=== PATIENT | female | born 1990 | race Hispanic/Latino ===

== ENCOUNTER → 2018-05-21 11:17 | Outpatient (CLI) | payer OTHER, SELFPAY ==
[2018-05-21 11:06] VITALS: BMI 33.7
--- NOTE | 2018-05-21 11:23 | RAD_ITS ---
STUDY: X-RAY - LEFT ANKLE REASON FOR EXAM: Female, 28 years old. Pain. Swelling. TECHNIQUE: 3 view(s) of the ankle. COMPARISON: None. FINDINGS: Normal visualized distal tibia and fibula. Normal medial and lateral malleoli. Normal tibiotalar articulation and ankle mortise. Normal visualized talus and calcaneus. Talar neck peak. The visualized subtalar, talonavicular, calcaneocuboid and tarsal articulations are normal. Soft tissue swelling. RAD/Ankle min 3 Views IMPRESSION: Soft tissue swelling. Electronically Signed: Heber David, at 12:14 EDT , Service support ,
== END ==
PROVIDERS: Family Provider Internal Medicine; PCP Internal Medicine; Referring Provider Physician Assistant Surgical; Visit Provider Physician Assistant Surgical
DX: S93.402A Sprain of unspecified ligament of left ankle, initial encounter (principal)
CPT/HCPCS: 73610

== ENCOUNTER 2018-08-04 12:50 | Emergency (ER) | payer OTHER, SELFPAY ==
[2018-05-21 11:06] VITALS: BMI 33.7
[2018-08-04 12:51] VITALS: BP 140/85; PULSE 60; RESP 16; TEMP 36.2; O2SAT 96; BMI 34.4
[2018-08-04] MEDS: 0.9% Normal Saline 1,000 ML 1000 ML IV (13:34)
[2018-08-04] MEDS: Metoclopramide 10 MG/2 ML Vial IV (13:34)
[2018-08-04] MEDS: Ketorolac 30 MG/ML Syringe IV (13:34)
[2018-08-04] MEDS: DiphenhydrAMINE 50 MG/ML Syringe IV (13:34)
[2018-08-04 13:36] LABS: Absolute Lymphocyte Count 1.84 X10^3/ul (0.83-4.51); Absolute Neutrophil Count 4.2 X10^3/uL (2.0-7.7); Basophil# 0.03 X10^3/uL; Basophil% 0.4 % (0-1); Eosinophil# 0.24 X10^3/uL; Eosinophils% 3.4 % (0-5); Hematocrit 38.4 % (37-47); Hemoglobin 12.8 g/dl (12.0-15.0); Lymphocyte # 1.84 X10^3/ul (4.0); Lymphocyte % 25.7 % (19-41); Mean Corp Hgb Conc 33.3 g/gl (32-36); Mean Corpuscular Hgb 30.9 pg (27.0-32.0); Mean Corpuscular Volume 92.8 fL (81-99); Mean Platelet Vol. 9.3 fl (6.2-12.0); Monocyte# 0.84 X10^3/uL; Monocyte% 11.7 % (0-10); Neutrophil # 4.19 X10^3/uL (2.7-7.7); Neutrophil % 58.7 % (47-70); POSITIVE COUNT NO; POSITIVE DIFFERENTIAL NO; POSITIVE MORPHOLOGY NO; Platelet Count 226 K/mm3 (150-450); RBC Distribution Width CV 12.4 % (11.6-14.6); RBC Distribution Width SD 41.8 fl (35.1-43.9); Red Blood Count 4.14 M/mm3 (4.2-5.4); White Blood Count 7.2 K/mm3 (4.4-11.0)
[2018-08-04 13:49] LABS: Anion Gap 6 (5-15); BUN 15 mg/dL (7-18); BUN/Creat Ratio 22.3 RATIO (10-20); Calcium,Total 8.7 mg/dL (8.5-10.1); Chloride 107 mmol/L (98-107); Creatinine, Serum 0.67 mg/dL (0.55-1.02); EST Glomerular Filtration Rate 109 mL/min (>60); Est Glom Filt Rate - Afr Amer 132 mL/min (>60); Estimated Creatinine Clearance 119.39 ml/min; Glucose 80 mg/dL (74-106); Potassium 4.3 mmol/L (3.5-5.1); Sodium Level 143 mmol/L (136-145)
[2018-08-04 13:57] LABS: Internal QC Validated? YES +Cl - CLEAR BKGD; Pregnancy, Serum, hCG Quali. NEGATIVE Negative
--- NOTE | 2018-08-04 14:47 | ED.DCSUM_ITS ---
- ER Visit Summary Date of Service: 08/04/18 Chief Complaint: Headache History of Present Illness: The patient is a [address] Clayton. She reports that she has a headache that began 3 days ago. It does come on gradually.'s continuous waxing, waning pain. She describes as a burning pain over her forehead. Is 7 out of 10 at worst and 5-10 currently. Is worsened by rest. Is relieved by Excedrin and ibuprofen. She does have photophobia and nausea. She denies any vomiting. No change in her vision. No recent trauma. No fever. Physical Examination: Vitals: Stable. Afebrile. General: Well-nourished and well-developed. Head: Normocephalic atraumatic. Neck: Supple, no lymphadenopathy. No JVD. Nontender. Cardiovascular: Regular rate and rhythm. No murmurs. Respiratory: No respiratory distress. Clear to auscultation bilaterally. Abdominal: Soft, nontender, nondistended, normal bowel sounds. No guarding, rebound, or peritoneal signs. Back: Nontender. Extremities: Nontender, no edema. Skin: Normal color, no rash. Neurologic: Alert and oriented ?3. Cranial nerves II through XII are intact. Normal strength and sensation. Psych: Normal affect. Test Results: CBC shows monocytes of 12. Chem-7 is normal. test is negative. Patient refused a CT of the head. I feel that this is a reasonable course of action. Emergency Department Course and Treatment: Patient was treated with Toradol, Benadryl, and Reglan IV. She had significant relief and is resting comfortably. Treatment Plan: Patient will be discharged with symptomatic care. Follow-up instructed to follow-up with her primary care physician 1 to 2 days if not improving. Return to the emergency department for any worsening symptoms. Disposition: To home in improved and stable condition. Impression: 1. Cephalgia. This note was generated with [employer] dictation software. It may contain incorrect words, spelling, and punctuation that were not noted in review of the chart prior to signing ED Disposition - Plan for ED Patient: Disposition: Home or Assisted Living Instructions: ED Cephalgia Unspecified Referrals: Lissa Clayton MD [Primary Care Provider] - 1-2 Days if not improving
== END 2018-08-04 14:55 | disposition home or self-care (01) ==
PROVIDERS: Emergency Provider Emergency Medicine; Family Provider Internal Medicine; PCP Internal Medicine
DX: R51 Headache (principal); H53.149 Visual discomfort, unspecified; R11.0 Nausea; R68.83 Chills (without fever); R00.2 Palpitations
CPT/HCPCS: 80048; 84703; 85025; 96361; 96374; 96375; 99283; J7030

== ENCOUNTER → 2020-02-20 10:10 | Outpatient (CLI) | payer OTHER, SELFPAY ==
[2020-02-20 07:05] VITALS: BMI 34.4
== END ==
PROVIDERS: Referring Provider Physician Assistant Surgical; Visit Provider Physician Assistant Surgical
DX: Z20.828 Contact with and (suspected) exposure to other viral communicable diseases (principal)
CPT/HCPCS: 87635; U0003

== ENCOUNTER 2020-06-07 18:48 | Emergency (ER) | payer OTHER, SELFPAY ==
[2020-03-08 08:03] VITALS: BMI 39.6
[2020-06-07 18:49] VITALS: BP 163/78; PULSE 71; RESP 16; TEMP 36.5; O2SAT 100; BMI 38.7
--- NOTE | 2020-06-07 19:09 | CT_ITS ---
STUDY: CT BRAIN WITHOUT CONTRAST REASON FOR EXAM: Female, 30 years old. Paraesthesias.pt states that the last 4 times she has gone on an hr long walk she will develop numbness in left foot. Pt seen at pcp yesterday and had blood work done that all came back normal. Today walked again with numbness in left foot that resolved and is now in left hand RADIATION DOSAGE (If Supplied By Facility): CTDIvol = ( 44.99 ) mGy, DLP = ( 796.11 ) mGycm TECHNIQUE: Transaxial CT imaging of the brain was performed without administration of intravenous contrast material. Individualized dose optimization techniques were used for this CT. COMPARISON: 12/01/2013 FINDINGS: Normal soft tissue structures. Normal calvarium. Normal size ventricles and extra-axial spaces for the patient''s age. Normal white matter tracts of the cerebral hemispheres. Normal basal ganglia and thalami. Normal brainstem. Normal cerebellum. There is no intracranial hemorrhage. There are no findings of an acute ischemic infarction. Normal visualized paranasal sinuses. CT/Brain/Head without Contrast IMPRESSION: No acute intracranial process. Electronically Signed: Smiley Ivory MD at 20:40 EDT Tel , Service support ,
[2020-06-07 19:59] LABS: Internal QC Validated? YES +Cl - CLEAR BKGD; Pregnancy, Serum, hCG Quali. NEGATIVE Negative
[2020-06-07 20:12] LABS: Thyroid Stim Hormone (TSH) 2.66 uIU/mL (0.358-3.74)
--- NOTE | 2020-06-07 21:23 | ED.DCSUM_ITS ---
- ER Visit Summary Date of Service: 06/07/20 Chief Complaint: [Paresthesias] History of Present Illness: The patient is a 30 F [presents to the emergency department with paresthesias to her left foot that have been going on for several months. Patient states that intermittently it will feel like her left f oot falls asleep. Patient also has had some intermittent episodes where her hands feel numb and tingly as well. She has had some associated intermittent headaches and at times some shortness of breath. Patient saw her primary care physician yesterday and had some blood work that was normal. She was able to show me that she had a CBC and chemistries done yesterday that were normal. Patient does not think she is . She does have a history of anxiety but the symptoms are different than what she experiences with her anxiety. Family history known of MS but she does not know her biological father. Patient denies recent illness otherwise. Denies visual changes.] Physical Examination: [HEENT-PERRLA, EOMI. Cranial nerves II through XII grossly intact. TMs clear. Mucous membranes moist. No adenopathy. Cardiovascular-regular rate and rhythm without murmur or ectopy Lungs-clear to auscultation, chest wall stable without crepitus or subcu emphysema Abdomen-normoactive bowel sounds, soft, nontender, no rebound or rigidity, no peritoneal signs. Neuro ywjo-gdzzfl-ydab and heel webb testing within normal limits, negative Romberg, negative , Fundi benign Extremities-intact ?4, normal range of motion, normal pulses, atraumatic] Test Results: [TSH obtained was normal. hCG was negative. CT scan of the brain without contrast was normal.] Emergency Department Course and Treatment: [] Treatment Plan: [Patient advised to follow-up with her primary care physician lilli chisholm next 3 to 5 days. If her symptoms persist she may require specialty follow-up with neurology potentially. At this point etiology of her paresthesias is unclear.] Disposition: [Discharged home in stable condition] Impression: [Paresthesias-etiology uncertain] This note was generated with [employer] software. It may contain incorrect words, spelling, and punctuation that were not noted in review of the chart prior to signing ED Disposition - Plan for ED Patient: Referrals: Lissa Clayton MD [Primary Care Provider] -
--- NOTE | 2020-06-07 21:26 | ED.DEP ---
ED Disposition - Plan for ED Patient: Instructions: ED Neuropathy, Peripheral, ED Paraesthesias Referrals: Lissa Clayton MD [Primary Care Provider] - 3-5 Days
[2020-06-07 21:35] VITALS: BP 132/81; PULSE 63; RESP 17; O2SAT 100
== END 2020-06-07 21:46 | disposition home or self-care (01) ==
PROVIDERS: Emergency Provider Emergency Medicine; PCP Internal Medicine
DX: R20.2 Paresthesia of skin (principal)
CPT/HCPCS: 70450; 84443; 84703; 99283; A4216

== ENCOUNTER 2021-05-28 12:35 | Outpatient (CLI) | payer OTHER, SELFPAY ==
[2021-05-28 12:52] LABS: Absolute Lymphocyte Count 1.44 X10^3/uL (0.83-4.51); Absolute Neutrophil Count 7.2 X10^3/uL (2.0-7.7); Basophil# 0.02 X10^3/uL; Basophil% 0.2 % (0-1); Eosinophil# 0.07 X10^3/uL; Eosinophils% 0.7 % (0-5); Hematocrit 34.6 % (37-47); Hemoglobin 11.5 g/dL (12.0-15.0); Lymphocyte # 1.44 X10^3/ul (0.83-4.51); Mean Corp Hgb Conc 33.2 g/dL (32-36); Mean Corpuscular Hgb 30.7 pg (27.0-32.0); Mean Corpuscular Volume 92.3 fL (81-99); Mean Platelet Vol. 9.7 fl (6.2-12.0); Monocyte# 0.77 X10^3/uL; NRBC Flagged by Analyzer 0 % (0-5); Neutrophil # 7.23 X10^3/uL (2.7-7.7); Neutrophil % 75.2 % (47-70); Platelet Count 262 K/mm3 (150-450); RBC Distribution Width CV 12.2 % (11.6-14.6); RBC Distribution Width SD 41.1 fl (35.1-43.9); Red Blood Count 3.75 M/mm3 (4.2-5.4); White Blood Count 9.6 K/mm3 (4.4-11.0)
[2021-05-28 13:26] LABS: Glucose Challenge Gest 1H 50g 143 mg/dL (70-140)
== END 2021-05-28 23:59 | disposition home or self-care (01) ==
LOC: PAVLAB 12:36
PROVIDERS: PCP Internal Medicine; Referring Provider Obstetrics & Gynecology; Visit Provider Obstetrics & Gynecology
DX: Z34.00 Encounter for supervision of normal first pregnancy, unspecified trimester (principal)
CPT/HCPCS: 36415; 82950; 85025

== ENCOUNTER 2021-06-07 07:03 | Outpatient (CLI) | payer OTHER, SELFPAY ==
[2021-06-07 07:55] LABS: Glucose GTT-Gestation. Fasting 84 mg/dL (<105)
[2021-06-07 08:42] LABS: Glucose GTT-Gestational 1 Hr 152 mg/dL (<190)
[2021-06-07 09:44] LABS: Glucose GTT-Gestational 2 Hr 126 mg/dL (<165)
[2021-06-07 11:00] LABS: Glucose GTT-Gestational 3 Hr 81 L (<145)
== END 2021-06-07 23:59 | disposition home or self-care (01) ==
LOC: LAB 07:04
PROVIDERS: PCP Internal Medicine; Referring Provider Nurse Practitioner Women's Health; Visit Provider Nurse Practitioner Women's Health
DX: O99.810 Abnormal glucose complicating pregnancy (principal); Z3A.00 Weeks of gestation of pregnancy not specified
CPT/HCPCS: 36415; 82951; 82952

== ENCOUNTER → 2021-06-11 | Outpatient (CLI) | payer OTHER, SELFPAY | END | disposition home or self-care (01) | LOC: LABSPEC 06-12 07:29 | PROVIDERS: PCP Internal Medicine; Visit Provider Nurse Practitioner Women's Health | DX: Z34.92 Encounter for supervision of normal pregnancy, unspecified, second trimester (principal) | CPT/HCPCS: 87086; 87088 ==

== ENCOUNTER → 2021-06-24 | Outpatient (CLI) | payer OTHER, SELFPAY ==
--- NOTE | 2021-06-24 12:28 | US_ITS ---
STUDY: SECOND AND THIRD TRIMESTER OBSTETRICAL ULTRASOUND - LIMITED REASON FOR EXAM: Female, 31 years old growth @ 32 and 36 weeks PRIOR ULTRASOUND: None. TECHNIQUE: Transabdominal TECHNICAL QUALITY: Adequate. FINDINGS: There is a single intrauterine fetus. The fetus is in a cephalic presentation. There is demonstrated cardiac activity with a heart rate of 140 bpm. There is a normal amniotic fluid volume. The largest amniotic fluid pocket measures 8 cm. The amniotic fluid index (KEYONNA) is 27 cm. The placenta is fundal. There are Grade 0 placental changes. The cervix measures 3.4 cm cm in length and closed. BIOMETRY: BPD: 8.6: 8 weeks, 5 days HC: 30.734 and 1 dys : 33 weeks, and 4 days AC: 29.7: 33 weeks, 4 days FL: : 31 weeks, 4 days No obvious anomalies. Gender: Female US/OB Limited With Biometrics IMPRESSION: Live intrauterine with a gestation age of 12 weeks and 3 days. Electronically Signed: Prabhu Colorado MD at 23:46 EDT ,
== END | disposition home or self-care (01) ==
LOC: OPUS 12:27
PROVIDERS: PCP Internal Medicine; Referring Provider Nurse Practitioner Women's Health; Visit Provider Nurse Practitioner Women's Health
DX: U07.1 COVID-19 (principal)
CPT/HCPCS: 76816

== ENCOUNTER → 2021-07-02 | Outpatient (CLI) | payer OTHER, SELFPAY ==
--- NOTE | 2021-07-02 19:10 | US_ITS ---
EXAM: US , LIMITED CLINICAL INDICATION: KEYONNA- RECHECK FLUID TECHNIQUE: Real-time limited ultrasound of the maternal uterus with image documentation. This report was created using [employer] report generation technology. COMPARISON: June 24, 2021. FINDINGS: FETUS: Single live fetus, cephalic presentation. HEART RATE: heart rate 1 41 bpm. PLACENTA: Fundal placenta. No evidence of hemorrhage or abruption. AMNIOTIC FLUID: 4 quadrant KEYONNA 21.3 cm. Largest pocket 7.4 cm. Comparison: 4 quadrant KEYONNA was reported to be 27.5 with largest fluid pocket 8 cm on prior exam June 24, 2021. CERVIX: Cervix length 3.6 cm, it appears closed. ADNEXA: Nonvisualized adnexal structures. VASCULATURE: Three-vessel CORD is demonstrated. US/OB Limited (No Biometrics) IMPRESSION: Limited exam. Single live fetus, cephalic presentation. Amniotic fluid measurements above. No obvious acute complications of . Electronically Signed: Latonya Vazquez MD at 0:36 EDT ,
== END | disposition home or self-care (01) ==
LOC: OPUS 19:08
PROVIDERS: PCP Internal Medicine; Visit Provider Nurse Practitioner Women's Health
DX: Z34.90 Encounter for supervision of normal pregnancy, unspecified, unspecified trimester (principal)
CPT/HCPCS: 76815

== ENCOUNTER → 2021-07-12 | Outpatient (CLI) | payer OTHER, SELFPAY ==
--- NOTE | 2021-07-12 08:01 | US_ITS ---
STUDY: SECOND AND THIRD TRIMESTER OBSTETRICAL ULTRASOUND - LIMITED REASON FOR EXAM: Female, 31 years old KEYONNA -- POLYHYDRAMNIOS LMP: 11/09/2020. PRIOR ULTRASOUND: Comparison is made with prior study of 07/02/2021. TECHNIQUE: Transabdominal TECHNICAL QUALITY: Adequate. FINDINGS: There is a single intrauterine fetus. The fetus is in a cephalic presentation. There is demonstrated cardiac activity with a heart rate of 155 bpm. There is increased amniotic fluid volume consistent with polyhydramnios. The largest amniotic fluid pocket measures 6.5 cm. The amniotic fluid index (KEYONNA) is 22.1 cm. The placenta is posterior and fundal. Not low-lying. There are Grade 0 placental changes. BIOMETRY: Age by LMP: 35 weeks, 0 days. MICHELLE by LMP: 08/16/2021.. US/OB Limited (No Biometrics) IMPRESSION: Elevated amniotic fluid index. Electronically Signed: Heber David MD at 11:08 EDT ,
== END | disposition home or self-care (01) ==
LOC: OPUS 07:47
PROVIDERS: PCP Internal Medicine; Referring Provider Nurse Practitioner Women's Health; Visit Provider Nurse Practitioner Women's Health
DX: O40.3XX0 Polyhydramnios, third trimester, not applicable or unspecified (principal); Z3A.35 35 weeks gestation of pregnancy
CPT/HCPCS: 76815

== ENCOUNTER → 2021-07-19 | Outpatient (CLI) | payer OTHER, SELFPAY ==
--- NOTE | 2021-07-19 14:32 | US_ITS ---
STUDY: SECOND AND THIRD TRIMESTER OBSTETRICAL ULTRASOUND - LIMITED REASON FOR EXAM: Female, 31 years old. weekly KEYONNA check PRIOR ULTRASOUND: Jul 12 2021 8:05am TECHNIQUE: Transabdominal TECHNICAL QUALITY: Adequate. FINDINGS: There is a single intrauterine fetus. The fetus is in a cephalic presentation. There is demonstrated cardiac activity with a heart rate of 130 bpm. There is a normal amniotic fluid volume. The largest amniotic fluid pocket measures 4.7 cm. The amniotic fluid index (KEYONNA) is 13.6 cm. The placenta is fundal in location posterior in location and is not low lying. There are Grade 1 placental changes. The cervix measures cm in length: . Age by LMP: 36 weeks, 0 days. MICHELLE by LMP: 6.24.22. US/OB Limited (No Biometrics) IMPRESSION: There is a single live intrauterine with a heart rate of 130 bpm. Age by LMP: 36 weeks, 0 days. MICHELLE by LMP: 6.24.22. The amniotic fluid index (KEYONNA) is 13.6 cm Electronically Signed: John Lai MD at 15:38 EDT Reading Location ID and State: [facility] / [place] , Service support ,
== END | disposition home or self-care (01) ==
LOC: OPUS 14:31
PROVIDERS: PCP Internal Medicine; Visit Provider Nurse Practitioner Women's Health
DX: O40.9XX0 Polyhydramnios, unspecified trimester, not applicable or unspecified (principal); Z3A.00 Weeks of gestation of pregnancy not specified
CPT/HCPCS: 76815

== ENCOUNTER → 2021-07-23 | Outpatient (CLI) | payer OTHER, SELFPAY ==
--- NOTE | 2021-07-23 14:36 | US_ITS ---
STUDY: SECOND AND THIRD TRIMESTER OBSTETRICAL ULTRASOUND - LIMITED REASON FOR EXAM: Female, 31 years old. growth PRIOR ULTRASOUND: 5.27.22 TECHNIQUE: Transabdominal TECHNICAL QUALITY: Adequate. FINDINGS: There is a single intrauterine fetus. The fetus is in a cephalic presentation. There is demonstrated cardiac activity with a heart rate of 145 bpm. There is a normal amniotic fluid volume. The largest amniotic fluid pocket measures 7.9 cm. The amniotic fluid index (KEYONNA) is 24.7 cm. The placenta is fundal in location. There are Grade 1 placental changes. The cervix measures cm in length: 3.5. BIOMETRY: BPD: 95 mm: 38 weeks, 3 days HC: 340 mm: 39 weeks, 0 days AC: 344 mm: 38 weeks, 2 days FL: 69 mm: 35 weeks, 2 days CI: 81 FL/AC: 20 FL/BPD: 73 HC/AC: .99 age by current US: 37 weeks, 5 days. MICHELLE by current US: 6.16.22. Estimated weight: 3301 grams, +/- 495 grams, 83 %. age by prior US: 37 weeks, 3 days. MICHELLE by prior US: 6.18.22. Age by LMP: 36 weeks, 4 days. MICHELLE by LMP: 6.24.22. US/OB Limited With Biometrics IMPRESSION: There is a single live intrauterine with a heart rate of 145 bpm. age by current US: 37 weeks, 5 days. MICHELLE by current US: 6.16.22. Estimated weight: 3301 grams, +/- 495 grams, 83 %. EFW is greater than 75%. Large for gestational age (LGA) should be considered. Electronically Signed: John Lai MD at 16:55 EDT ,
== END | disposition home or self-care (01) ==
PROVIDERS: PCP Internal Medicine; Visit Provider Nurse Practitioner Women's Health
DX: Z34.02 Encounter for supervision of normal first pregnancy, second trimester (principal)
CPT/HCPCS: 76816; 87081

== ENCOUNTER → 2021-07-26 | Outpatient (CLI) | payer OTHER, SELFPAY ==
--- NOTE | 2021-07-26 13:56 | US_ITS ---
STUDY: SECOND AND THIRD TRIMESTER OBSTETRICAL ULTRASOUND - LIMITED REASON FOR EXAM: Female, 31 years old KEYONNA -- WEEKLY KEYONNA LMP: 11/09/2020. PRIOR ULTRASOUND: Comparison is made with prior study of 07/23/2021. TECHNIQUE: Transabdominal TECHNICAL QUALITY: Adequate. FINDINGS: There is a single intrauterine fetus. The fetus is in a cephalic presentation. There is demonstrated cardiac activity with a heart rate of 150 bpm. There is a normal amniotic fluid volume. The largest amniotic fluid pocket measures 7.1 cm. The amniotic fluid index (KEYONNA) is 21 cm. The placenta is posterior in location and is not low lying. There are Grade 1 placental changes. The cervix measures 3.9 cm in length. BIOMETRY: Age by LMP: 37 weeks, 0 days. MICHELLE by LMP: 08/16/2021. US/OB Limited (No Biometrics) IMPRESSION: Normal amniotic fluid index. Electronically Signed: Heber David MD at 16:15 EDT ,
== END | disposition home or self-care (01) ==
LOC: OPUS 13:53
PROVIDERS: PCP Internal Medicine; Referring Provider Nurse Practitioner Women's Health; Visit Provider Nurse Practitioner Women's Health
DX: Z34.93 Encounter for supervision of normal pregnancy, unspecified, third trimester (principal)
CPT/HCPCS: 76815

== ENCOUNTER → 2021-08-02 | Outpatient (CLI) | payer OTHER, SELFPAY ==
--- NOTE | 2021-08-02 08:05 | US_ITS ---
EXAM: US , LIMITED CLINICAL INDICATION: KEYONNA TECHNIQUE: Real-time limited ultrasound of the maternal uterus with image documentation. This report was created using [employer] report generation technology. COMPARISON: None. FINDINGS: POSITION: There is an intrauterine gestation in cephalic position. HEART RATE: heart rate is 132 bpm. AMNIOTIC FLUID: KEYONNA measures 19.1 cm. US/OB Limited (No Biometrics) IMPRESSION: Intrauterine gestation with heart rate of 132 bpm. KEYONNA measures 19.1 cm. Electronically Signed: Tulio Garcia MD at 16:38 EDT ,
== END | disposition home or self-care (01) ==
LOC: OPUS 08:01
PROVIDERS: PCP Internal Medicine; Referring Provider Nurse Practitioner Women's Health; Visit Provider Nurse Practitioner Women's Health
DX: O40.9XX0 Polyhydramnios, unspecified trimester, not applicable or unspecified (principal); Z3A.00 Weeks of gestation of pregnancy not specified
CPT/HCPCS: 76815

== ENCOUNTER → 2021-08-09 | Outpatient (CLI) | payer OTHER, SELFPAY ==
--- NOTE | 2021-08-09 17:00 | US_ITS ---
STUDY: SECOND AND THIRD TRIMESTER OBSTETRICAL ULTRASOUND - LIMITED REASON FOR EXAM: Female, 31 years old . Polyhydramnios. KEYONNA. LMP: Unknown. PRIOR ULTRASOUND: 06/24/2021 07/23/2021 TECHNIQUE: Transabdominal TECHNICAL QUALITY: Adequate. FINDINGS: There is a single intrauterine fetus. The fetus is in a cephalic presentation. There is demonstrated cardiac activity with a heart rate of 134 bpm. There is a normal amniotic fluid volume. The largest amniotic fluid pocket measures 6.69 cm. The amniotic fluid index (KEYONNA) is 22.43 cm. The placenta is posterior in location and is not low lying. There are Grade 2 placental changes. The cervix is obscured age by initial US: 40 weeks, 0 days. MICHELLE by initial US: 08/10/2021. age by most recent US: 40 weeks, 2 days. MICHELLE by most recent US: 08/08/2021. US/OB Limited (No Biometrics) IMPRESSION: 1. Live single intrauterine 40 weeks 0 days. heart rate is 134 bpm. 2. KEYONNA of 22.43 cm. 3. Posterior grade 2 placenta. 4. Vertex presentation. Electronically Signed: Ricardo Chua DO at 17:02 EDT ,
== END | disposition home or self-care (01) ==
LOC: US 17:02
PROVIDERS: PCP Internal Medicine; Visit Provider Nurse Practitioner Women's Health
DX: O40.9XX0 Polyhydramnios, unspecified trimester, not applicable or unspecified (principal); Z3A.00 Weeks of gestation of pregnancy not specified
CPT/HCPCS: 76815

== ENCOUNTER → 2021-08-16 | Outpatient (CLI) | payer OTHER, SELFPAY ==
--- NOTE | 2021-08-16 13:37 | US_ITS ---
EXAM: US , LIMITED CLINICAL INDICATION: KEYONNA TECHNIQUE: Real-time limited ultrasound of the maternal uterus with image documentation. This report was created using [employer] report generation technology. COMPARISON: None. FINDINGS: POSITION: Cephalic presentation. HEART RATE: heart rate is 140 bpm. PLACENTA: Placenta is fundal without placenta previa. AMNIOTIC FLUID: Amniotic fluid index is 18.7 cm. Deepest vertical pocket is 6.8 cm. US/OB Limited (No Biometrics) IMPRESSION: Amniotic fluid index is 18.7 cm. Electronically Signed: Chilango Back MD at 22:59 EDT ,
== END | disposition home or self-care (01) ==
LOC: OPUS 13:31
PROVIDERS: PCP Internal Medicine; Visit Provider Nurse Practitioner Women's Health
DX: O40.9XX0 Polyhydramnios, unspecified trimester, not applicable or unspecified (principal); Z3A.00 Weeks of gestation of pregnancy not specified
CPT/HCPCS: 76815

== ENCOUNTER 2021-08-22 19:19 | Inpatient (IN) | payer OTHER, SELFPAY ==
[2021-08-22 19:29] VITALS: PULSE 95; O2SAT 98
[2021-08-22 19:34] VITALS: PULSE 86; O2SAT 98
[2021-08-22 19:38] VITALS: BP 136/69; PULSE 84; TEMP 37
[2021-08-22 19:52] LABS: Absolute Lymphocyte Count 2.42 X10^3/uL (0.83-4.51); Absolute Neutrophil Count 8.6 X10^3/uL (2.0-7.7); Basophil# 0.03 X10^3/uL; Basophil% 0.2 % (0-1); Eosinophil# 0.09 X10^3/uL; Eosinophils% 0.7 % (0-5); Hematocrit 36.3 % (37-47); Hemoglobin 12.1 g/dL (12.0-15.0); Lymphocyte # 2.42 X10^3/ul (0.83-4.51); Lymphocyte % 19.6 % (19-41); Mean Corp Hgb Conc 33.3 g/dL (32-36); Mean Corpuscular Hgb 30.6 pg (27.0-32.0); Mean Corpuscular Volume 91.7 fL (81-99); Mean Platelet Vol. 11.7 fl (6.2-12.0); Monocyte# 1.18 X10^3/uL; Monocyte% 9.5 % (0-10); NRBC Flagged by Analyzer 0 % (0-5); Neutrophil # 8.56 X10^3/uL (2.7-7.7); Neutrophil % 69.3 % (47-70); Platelet Count 246 K/mm3 (150-450); RBC Distribution Width CV 13.2 % (11.6-14.6); Red Blood Count 3.96 M/mm3 (4.2-5.4); White Blood Count 12.4 K/mm3 (4.4-11.0)
[2021-08-22 20:34] VITALS: BMI 41.6
[2021-08-22] MEDS: miSOPROStol 25 MCG TABLET VAGINAL (21:01)
[2021-08-22] MEDS: Famotidine 20 MG Tablet 10 MG PO (21:10)
[2021-08-22 23:05] VITALS: BP 147/84; PULSE 83; TEMP 36.8; O2SAT 98
[2021-08-23] VITALS (28 sets, daily range): BP systolic 108–180; BP diastolic 57–98; PULSE 61–85; TEMP 36.4–37.1; O2SAT 92–100
[2021-08-23] MEDS: miSOPROStol 25 MCG TABLET VAGINAL ×2 (01:07→05:07)
[2021-08-23] MEDS: Acetaminophen 500 MG Tablet PO ×2 (05:15→15:32)
--- NOTE | 2021-08-23 05:58 | HP.PCM.OB_ITS ---
HPI - General General Date of Admission: 08/22/21 HPI Narrative ALEJANDRA SALGADO, is a 31 F who presents for IOL secondary to postdates. she has had a complicated by obesity but otherwise has done very well. Maternal Data Information MICHELLE Calculator Estimated Delivery Date Method Current WG Current Estimate 08/16/21 LMP (Certain) 41w 0d PFSH PFSH Medical History Abnormal glucose affecting Cervical high risk HPV (human papillomavirus) test positive Chest pain Polyhydramnios affecting Home Medications elderberry fruit 460 mg-elderberry flower 115 mg capsule cap PO 1XD Check with primary doctor 04/09/21 [History Last Taken Unknown] famotidine 10 mg tablet (Pepcid AC) 10 mg PO DAILY 04/09/21 [History Last Taken Unknown] prenat.vits,tammie,muq-adli-qccya 1 tab PO DAILY 04/09/21 [History Last Taken Unknown] aspirin 81 mg capsule 81 mg PO DAILY Check with primary doctor 08/22/21 [History Last Taken Unknown] Allergy/AdvReac Type Severity Reaction Status Date / Time No Known Allergies Allergy Verified 08/22/21 19:42 Family History Mother Hypertension Cancer skin Father Cancer throat Aunt Breast cancer Grandmother Brain cancer Colon cancer Other Diabetes Surgical History H/O hand surgery Hx of cholecystectomy Social History adopted: No household members: spouse and other details: step son current occupational status: employed current occupation: [employer] pets and animals: Yes pets and animals: dog(s) Smoking Status: Never smoker alcohol intake: current alcohol intake frequency: a few times a month Alcohol type: hard liquor details: not while substance use type: does not use History 1 Elective abortions Hx Para 0 Spontaneous abortions Hx # Term Pregnancies Ectopic pregnancies Hx # Pregnancies Multiple births # of living children Visit Details Expected Delivery Route/Plan Labor Preferences- CB/BF classes: scheduled labor support person: Damion labor intervention preferences: open pain management options preferred: prefers minimal intervention but open to anything cut cord/dad catch: yes : yes PP control planned: discussed discussed possible routes of delivery and associated risks: [] special requests: [] Plans Covid status: pos in Flu vaccine: discussed Tdap vaccine: given Rhogam: na LARC form signed: yes movement and labor precautions reviewed. Problem list reviewed and updated with the most current plan of care details and appropriate orders placed. Relevant counseling for the gestational age provided. Continue routine care and follow up unless otherwise noted in visit notes/problem list details OB Flowsheet Initial Weight: 240 lb Date -?-?-?-?-?-?-?-?-?-?-?-?- EGA Weight BP Urine Prot -?-?-?-?-?-?-?-?-?-?-?-?- Glucose FHR FuHt Pres Dilation -?-?-?-?-?-?-?-?-?-?-?-?- Effaced St Visit Note 05/06/21 -?-?-?-?-?-?-?-?-?-?-?-?- 25w 3d 251 lb 12.8 oz (+11 lb 12.8 oz) 128/80 Negative -?-?-?-?-?-?-?-?-?-?-?-?- Negative 150 -?-?-?-?-?-?-?-?-?-?-?-?- Sm- [facility]. no vb cramping some round ligament, discussed nutrition. 05/28/21 -?-?-?-?-?-?-?-?-?-?-?-?- 28w 4d 252 lb 8 oz (+12 lb 8 oz) 104/70 Negative -?-?-?-?-?-?-?-?-?-?-?-?- Negative 153 28 -?-?-?-?-?-?-?-?-?-?-?-?- -NO VB, LOF. Good Fm. 28 wk labs, larc. May due tdap next time. Unable to give urine. Ordered growth US 32 &36 wk. -NO VB, LOF. Good Fm. 28 wk labs, larc. May due tdap next time. Ordered growth US 32 &36 wk. 06/11/21 -?-?-?-?-?-?-?-?-?-?-?-?- 30w 4d 254 lb (+14 lb) 122/78 Negative -?-?-?-?-?-?-?-?-?-?-?-?- Negative 148 30 -?-?-?-?-?-?-?-?-?-?-?-?- MH-No Vb, LOF. G ood FM. Tdap. Growth US 32 and 36 wk 06/24/21 -?-?-?-?-?-?-?-?-?-?-?-?- 32w 3d 255 lb (+15 lb) 124/80 Negative -?-?-?-?-?-?-?-?-?-?-?-?- Negative 145 32 Cephalic -?-?-?-?-?-?-?-?-?-?-?-?- SM- no vb lof go od fm no regular ctx 07/03/21 -?-?-?-?-?-?-?-?-?-?-?-?- 33w 5d 254 lb (+14 lb) 108/76 Negative -?-?-?-?-?-?-?-?-?-?-?-?- Negative 140 -?-?-?-?-?-?-?-?-?-?-?-?- MH-NST only reac tive. KEYONNA today improved 07/08/21 -?-?-?-?-?-?-?-?-?-?-?-?- 34w 3d 259 lb 4 oz (+19 lb 4 oz) 120/70 Negative -?-?-?-?-?-?-?-?-?-?-?-?- Negative 140 Cephalic 0 -?-?-?-?-?-?-?-?-?-?-?-?- MH-Reactive NST. Irregular CTX, states feels pressure. KEYONNA weekly and growth with KEYONNA at 36 wk 07/15/21 -?-?-?-?-?-?-?-?-?-?--?-?- 35w 3d 260 lb 6 oz (+20 lb 6 oz) 114/78 Negative -?-?-?-?-?-?-?-?-?-?-?-?- Negative 140 -?-?-?-?-?-?-?-?-?-?-?-?- MH-NST only. norah ctive. stable KEYONNA 07/23/21 -?-?-?-?-?-?-?-?-?-?-?-?- 36w 4d 260 lb 4 oz (+20 lb 4 oz) 120/82 -?-?-?-?-?-?-?-?-?-?-?-?- 142 37 Cephalic 0 -?-?-?-?-?-?-?-?-?-?-?-?- JV- KEYONNA 13. Norm al sterile spec exam and pt denies loss of fluid. but had some spotting earlier today. No blood on exam. There is a pimple on labia majora, likely bleeding from there. 07/26/21 -?-?-?-?-?-?-?-?-?-?-?-?- 37w 0d 261 lb (+21 lb) 120/86 Negative -?-?-?-?-?-?-?-?-?-?-?-?- Negative 130 -?-?-?-?-?-?-?-?-?-?-?-?- JV- NST reactive today. rpt keyonna today pending 08/01/21 -?-?-?-?-?-?-?-?-?-?-?--?- 37w 6d 261 lb 8 oz (+21 lb 8 oz) 134/82 Negative -?-?-?-?-?-?-?-?-?-?-?-?- Negative 140 Cephalic -?-?-?-?-?-?-?-?-?-?-?-?- JV- nst reactive . no complaints. 08/09/21 -?-?-?-?-?-?-?-?-?-?-?-?- 39w 0d 126/70 -?-?-?-?-?-?-?-?-?-?-?-?- 130 Cephalic -?-?-?-?-?-?-?-?-?-?-?-?- SM- no vb lof go od fm no regular ctx 08/16/21 -?-?-?-?-?-?-?-?-?-?-?-?- 40w 0d 261 lb (+21 lb) 119/82 Negative -?-?-?-?-?-?-?-?-?-?-?-?- Negative 130 0.5 -?-?-?-?-?-?-?-?-?-?-?-?- Sm- no vb lof go od fm no regular ctx 08/22/21 -?-?-?-?-?-?-?-?-?-?-?-?- 40w 6d 266 lb (+26 lb) 136/69 147/84 143/73 144/82 -?-?-?-?-?-?-?-?-?-?-?-?- -?-?-?-?-?-?-?-?-?-?-?-?- NST FHR Rate Baby A Baseline: 130 Variability:: Moderate Accelerations:: 15 x 15 Decelerations:: None NST Reactive:: Yes FHR Category:: Category I Uterine Activity:: irregular ROS Constitutional Constitutional: Reports systems reviewed and no addt'l complaints, except as documented Eyes Eyes: Denies change in vision ENT HEENT: Reports systems reviewed and no addt'l complaints, except as documented; Denies headache(s) Cardiovascular Cardiovascular: Reports systems reviewed and no addt'l complaints, except as documented; Denies chest pain or dyspnea Respiratory/Chest Respiratory/Chest: Reports systems reviewed and no addt'l complaints, except as documented Gastrointestinal Gastrointestinal: Reports systems reviewed and no addt'l complaints, except as documented; Denies abdominal pain Genitourinary Genitourinary: Reports systems reviewed and no addt'l complaints, except as documented, contractions Details: present (irregular) and movement Details: present; Denies dysuria or genital lesions Musculoskeletal Musculoskeletal: Reports systems reviewed and no addt'l complaints, except as documented Neurologic Neurologic: Reports systems reviewed and no addt'l complaints, except as documented Endocrine Endocrinology: Reports systems reviewed and no addt'l complaints, except as documented Vital Signs Vital Signs Vital Signs: 08/22/21 19:29 08/22/21 19:29 08/22/21 19:34 Temperature Temperature Source Pulse Rate 95 86 Blood Pressure BP Systolic BP Diastolic Pulse Ox 98 08/22/21 19:34 08/22/21 19:38 08/22/21 19:38 Temperature 98.6 F Temperature Source Pulse Rate Blood Pressure 136/69 H BP Systolic 136 BP Diastolic 69 Pulse Ox 98 08/22/21 19:38 08/22/21 19:38 08/22/21 23:05 Temperature Temperature Source Temporal Pulse Rate 84 Blood Pressure 147/84 H BP Systolic 147 BP Diastolic 84 Pulse Ox 08/22/21 23:05 08/22/21 23:05 08/22/21 23:05 Temperature 98.2 F Temperature Source Temporal Pulse Rate 83 Blood Pressure BP Systolic BP Diastolic Pulse Ox 08/22/21 23:05 08/23/21 01:04 08/23/21 01:04 Temperature Temperature Source Pulse Rate 74 Blood Pressure 143/73 H BP Systolic 143 BP Diastolic 73 Pulse Ox 98 08/23/21 01:04 08/23/21 01:04 08/23/21 05:02 Temperature 98.4 F Temperature Source Temporal Pulse Rate 79 Blood Pressure BP Systolic BP Diastolic Pulse Ox 08/23/21 05:02 08/23/21 05:02 08/23/21 05:03 Temperature 98.8 F Temperature Source Pulse Rate Blood Pressure 144/82 H BP Systolic 144 BP Diastolic 82 Pulse Ox 100 08/23/21 05:03 08/23/21 05:02 Temperature Temperature Source Temporal Pulse Rate 75 Blood Pressure BP Systolic BP Diastolic Pulse Ox Weight Weight: 266 lb Body Mass Index (BMI) 41.6 Physical Exam Const alert, oriented x3, no apparent distress and healthy appearing HEENT normocephalic and moist oral mucous membranes Head and Scalp: atraumatic Neck full ROM, no lymphadenopathy, supple and thyroid normal General: trachea midline Lymph Lymphatic: no lymphadenopathy noted Chest inspection of chest normal Resp normal respiratory effort Cardio regular rate GI normal to inspection, nondistended, normoactive bowel sounds, soft to palpation and non-tender Inspection: gravid external exam normal Manual OB Exam: estimated gestational size appropriate, presentation cephalic, dilated, effaced and station Extremity normal to inspection General Extremity: Negative for edema Skin no rashes or lesions noted Neuro no focal motor deficits and deep tendon reflexes 2+ bilaterally Motor Exam: strength 5/5 throughout and clonus absent Psych mental status grossly normal Labs Labs Labs: Blood Type A POSITIVE Antibody Screen NEGATIVE Hct 36.3 % (37-47) L Hgb 12.1 g/dL (12.0-15.0) Pap Smear Negative Obstetrics US Glucose 1 Hr 50 gm 143 mg/dL (70-140) H Assessment & Plan (1) Obesity affecting : COMMENT: repeat keyonna, previous polyhydramnios but resolved.weekly nst, nl US, nl KEYONNA 08/16 (2) Abnormal glucose affecting : COMMENT: normal 3 hr GTT (3) Lab test positive for detection of COVID-19 virus: COMMENT: 03/01/21:declines ASA due to stomach upset. Needs growth US at 32 and 36 wk/ordered (4) History of depression: COMMENT: no meds. Has done counseling. stable (5) Supervision of normal first : QUALIFIERS: Trimester: second trimester Qualified Code(s): Z34.02 - Encounter for supervision of normal first , second trimester COMMENT: PRR MICHELLE 08/16/21 boy caty Spouse:Damion(Greg) (6) : QUALIFIERS: Weeks of gestation: 40 weeks Qualified Code(s): Z3A.40 - 40 weeks gestation of COMMENT: 21 wk [facility] from [facility]. States declines carrier screen and genetic screen was LR. NT nl, anatomy nl. GBS neg IOL 08/22 @ 7pm PLAN: Plan Patient presents IOL, plan management for with cytotec then plan pitocin. Pain management: open to epidural if needed. GBS negative. Management of any complications: none I have reviewed the [facility] and made any clinically relevant updates.
[2021-08-23] MEDS: miSOPROStol 50 MCG TABLET VAGINAL (09:11)
[2021-08-23] MEDS: Famotidine 20 MG Tablet 10 MG PO (10:58)
[2021-08-23] MEDS: 0.9% Saline Lock 10 ML Syringe IV ×2 (15:31→23:20)
[2021-08-23] MEDS: Lactated Ringers 1,000 ML 50 ML IV (15:33)
[2021-08-23] MEDS: Oxytocin 30 units/NS 500 ml 30 UNITS/500 ML IV.SOLN IV (15:37)
[2021-08-23] MEDS: 0.9% Normal Saline Single 100 ML IV.SOLN. INTRA-UTER (15:44)
[2021-08-23] MEDS: LACTATED RINGERS 500 ML 999 ML IV ×2 (16:00→21:04)
[2021-08-23] MEDS: Ondansetron 4 MG/2 ML Vial IV (23:16)
[2021-08-24] VITALS (81 sets, daily range): BP systolic 98–150; BP diastolic 48–81; PULSE 58–103; RESP 18–20; TEMP 36.1–37.9; O2SAT 90–100
[2021-08-24] MEDS: LACTATED RINGERS 500 ML 999 ML IV ×2 (00:19→01:45)
[2021-08-24] MEDS: Lactated Ringers 1,000 ML 200 ML IV ×2 (00:50→06:27)
[2021-08-24] MEDS: fentaNYL-bupivacaine (epidural) 100 ML BAG EPIDURAL ×2 (01:45→05:52)
--- NOTE | 2021-08-24 08:03 | PCM.PN.BLA ---
Progress Note 7 cm overall reassuring FHT increase pitocin per protocol, position changes. monitor tracing cat I but previously cat II
[2021-08-24] MEDS: 0.9% Saline Lock 10 ML Syringe IV ×2 (10:35→14:41)
[2021-08-24] MEDS: Lactated Ringers 1,000 ML 999 ML IV (11:13)
[2021-08-24] MEDS: Acetaminophen 500 MG Tablet 1000 MG PO ×2 (11:13→17:33)
[2021-08-24] MEDS: Sodium Citrate/Citric Acid 30 ML UDC PO (11:45)
--- NOTE | 2021-08-24 11:45 | OP.PCM_ITS ---
Assessment & Plan (1) Encounter for induction of labor: (2) Obesity affecting : COMMENT: repeat keyonna, previous polyhydramnios but resolved.weekly nst, nl US, nl KEYONNA 08/16 (3) Abnormal glucose affecting : COMMENT: normal 3 hr GTT (4) Lab test positive for detection of COVID-19 virus: COMMENT: 03/01/21:declines ASA due to stomach upset. Needs growth US at 32 and 36 wk/ordered (5) History of depression: COMMENT: no meds. Has done counseling. stable (6) Supervision of normal first : QUALIFIERS: Trimester: second trimester Qualified Code(s): Z34.02 - Encounter for supervision of normal first , second trimester COMMENT: PRR MICHELLE 08/16/21 boy james Spouse:Damion(Greg) (7) : QUALIFIERS: Weeks of gestation: 40 weeks Qualified Code(s): Z3A.40 - 40 weeks gestation of COMMENT: 21 wk [facility] from [facility]. States declines carrier screen and genetic screen was LR. NT nl, anatomy nl. GBS neg IOL 08/22 @ 7pm (8) Arrest of dilation, delivered, current hospitalization: COMMENT: 7 cm for 5 hours with adequate contractions, pitocin for over 20 hours. (9) delivery delivered: COMMENT: LTCS AOD 7 cm SM 41 boy James Maternal Data Information MICHELLE Calculator Estimated Delivery Date Method Current WG Current Estimate 08/16/21 LMP (Certain) 41w 2d Final MICHELLE Source: LMP Details Operative Information Date of Procedure: 08/24/21 Pre-Operative Diagnosis: AOD 7 cm Post-Operative Diagnosis: same Indications for : Repeat Elective Classification: RYAN Procedure Type: low transverse interactive graphic designer #1: Ely Cisneros Type of Anesthesia: Epidural Special Medications: none Antibiotic Given: Ancef 3 grams IV x1 and Zithromax 500 mg/5 mL X1 Drain: Yin to straight drain Estimated Blood Loss: 800 Fluids Replaced: crystalloid Findings Description of Procedure: Patient presented for induction of labor secondary to postdates. After being induced with Cytotec for 20 hours patient underwent Pitocin and a Yin bulb. She then had a rupture of membranes for clear fluid. She made slow change from 5-6 and then 7 cm and then experienced an arrest of dilation at 7 cm with adequate contractions for 5 hours. She also developed recurrent late decelerations with contractions but still was reactive with minimal variability. The decision was made to proceed with primary low transverse for suspected CPD likely due to soft tissue dystocia from obesity or possible bony CPD or size. caput was noted at the head the patient was placed in the dorsal supine position with leftward tilt. Patient was prepped and draped in the normal sterile fashion. Pfannenstiel skin incision was made with the scalpel and carried through to the underlying layer of fascia with the scalpel. Fascia was nicked in the midline and the incision extended laterally. The rectus bellies were dissected off superiorly and inferiorly with out complication both sharply and bluntly. The peritoneum was entered digitally. The incision was stretched and a low transverse uterine incision was made with the scalpel. The 's head was delivered atraumatically followed by the anterior and posterior shoulders without complication the rest of the infant delivered. The cord was clamped and cut and the was handed off to awaiting nurse. The placenta was delivered spontaneously immediately following and was noted to be intact and have a three-vessel cord. The uterus was exteriorized cleared of all clots and debris, and the incision was closed in a double layer closure using #1 Monocryl. The ovaries and fallopian tubes were noted to be within normal limits. The uterus was returned to the maternal abdomen and gutters were cleared of all clots and debris. The peritoneum was closed with 3-0 Monocryl in a running fashion. Gloves were changed prior to fascial closure. Fascia was closed with 0 PDS in a running fashion. Subcutaneous tissue was copiously irrigated and the skin was closed with 3-0 Monocryl in a subcuticular fashion. Mepilex dressing was applied without complication. Patient was taken to recovery in stable condition. It was discussed with the patient that based on the clinical information obtained during this encounter, combined with her history, at this time I would recommend cesareans or possible vaginal if there is a smaller baby and significant weight loss for future deliveries if further pregnancies are desired. Amniotic Membrane Rupture Type: Artificial Amniotic Fluid Description: Moderate meconium Placental Delivery Description: Spontaneous Placenta Disposition: [facility] Cord Vessel Description: 3 Vessels Cord Entanglement: None A Gender: Male Delayed Cord Clamping: Yes Complications Risks of Surgery Discussed w/Patient: Bleeding, Infection, Need for Future C- Sections and Injury to surrounding structure(s) including bowel and bladder Vaginal Delivery Complication Complications: None Admit VTE Documentation VTE Present on Admission: No VTE Mechan Device Prophylaxis: SCD's Procedures Urinary/Genital [id number]: [id number] Delivery [facility]
[2021-08-24] MEDS: Oxytocin 30 units/NS 500 ml 30 UNITS/500 ML IV.SOLN 167 UNITS IV (13:00)
[2021-08-24] MEDS: Ketorolac 30 MG/ML Syringe IV ×2 (13:45→19:37)
[2021-08-24] MEDS: HYDROmorphone 1 MG/ML Syringe IV (14:39)
[2021-08-24] MEDS: Lactated Ringers 1,000 ML 100 ML IV (15:53)
--- NOTE | 2021-08-24 19:07 | CASEMGMT ---
Social Work Assessment SW spoke with RN, RN reports no concerns, just history of Depression. MOB: Leah Chappell G/P: 1/0 PNC: [place] Control: Phexxi - Gel Control. Pt also states also never having sex again. Baby: Boy named James : 08/24/[birth year]21 around noon Apgars: 4/9 Weight: 3895 G C Software Developer: Jenny MOB plans to breast feed. MOB states she has tried a couple times today and so far it is going ok. MOB's other children: None biologically. MOB states that LILLIE Bruno has a son from a previous marriage so she has a step son. Baby James is MOB first baby. Housing: MOB states no concerns. Pt states they rent a house. Transportation: MOB states she has access to transportation and states no concerns. Supplies: MOB states she has all supplies needed. Supports: MOB states LILLIE Bruno is good support and also states she has wonderful in-laws. Education/Employment: Pt states that she graduated High School and attended college. Pt states she has a Bachelor's degree in Biology and Master's Degree in Plant Pathology. Pt states she works at [employer]. Pt states she was working until she gave , mostly from home. 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 Pt then states she may not return to work at all. MOB Mental Health Hx: MOB states that she has history of Anxiety and Depression and trying to heal from past trauma as a teenager. MOB states that she is currently seeing a counselor and plans to resume counseling services at discharge. MOB reports she will be seeing her counseling 1x a week after discharge. MOB reports no current suicidal thoughts or homicidal thoughts. MOB reports as a teenager she had suicidal thoughts but denied any current suicidal thoughts. SW educated MOB on Post Depression. MOB reports that she is some worried about what she will feel like once LILLIE returns to work and she is home alone. MOB reports that she was so even during . MOB reports that she is nervous about the hormonal changes. SW spoke with MOB about monitoring herself and her symptoms will be important and how FOB can help monitor her symptoms as well. SW informed MOB that if she starts to have PPD/Anxiety to reach out to Dr. Cantu and her individual counselor. MOB reports that she and Dr. Cantu have already been discussing this and is aware of pt. MOB states that she also see's a couple's counselor with FOB and plans to continue to do couples counseling in addition to individual counseling. MOB reports that she is not on any medication for Mental Health. AOD History: MOB reports that she will watch her ETOH intake, states it is not an issues. MOB reports couple times a month regarding ETOH Use. MOB reports no smoking and no other substances. MOB reports no ETOH use during . Agency Involvement: MOB reports none FOB: Damion Chappell Time Together: for four years. Involved at : Yes Employment: LILLIE currently works at [employer]. LILLIE Bruno states he will be taking 6 weeks off and then he has additional time off he cane use. Other Children: FOB reports one other son from previous marriage. FOB Mental Health/AOD/DOmestic Violence Hx: LILLIE Bruno states nothing too crazy regarding Mental Health Hx. Damion denied any substance abuse. FOB and MOB denied any DV concerns. MOB reports she feels safe at home. SW educated pt on Shaken Baby, PPD, and Safe Sleeping. SW provided MOB with information on PPD/Anxiety. MOB was very appropriate during assessment and engaged appropriately in conversation. MOB providing skin to skin contact with baby. MOB with appropriate affect including smiling and laughing during conversation. MOB with appropriate eye contact. MOB reports to be currently linked up with individual and couples counseling and reports she will continue to see the counselor's at discharge. MOB states she will see her individual counselor 1x a week and states she will see her individual counselor next week. MOB reports that her and Dr. Cantu have been discussing Mental Health and pt was encouraged to reach out to Dr. Cantu if symptoms of PPD/Anxiety arise. MOB reports no current suicidal or homicidal thoughts. MOB does report some worries about the hormonal change and what she will be like when she is home alone and Damion goes back to work. As mentioned, pt was informed to reach out to Dr. Cantu or her individual counselor if she feels the needs to regarding her Mental Health. Plan: Home with support from FOB and continued counseling. Pt to continue to see her individual counselor and couple's counselor. Pt reports to have an appointment with her individual counselor next week. Nicole Araujo FOREST ECONOMICS PROFESSOR, DIALYSIS BIOMED TECHNICIAN
[2021-08-24] MEDS: oxyCODONE 5 MG Tablet PO (19:37)
[2021-08-24] MEDS: Hydrocortisone 2.5% Crm 1 APPLIC TOPICAL (19:37)
[2021-08-25 01:00] VITALS: BP 129/72; PULSE 81; RESP 18; TEMP 36.2; O2SAT 100
[2021-08-25] MEDS: Acetaminophen 500 MG Tablet 1000 MG PO ×4 (01:02→18:57)
[2021-08-25] MEDS: Enoxaparin 40 MG/0.4 ML Syringe SC ×3 (01:03→22:09)
[2021-08-25] MEDS: oxyCODONE 5 MG Tablet PO ×5 (01:16→23:10)
[2021-08-25] MEDS: Ketorolac 30 MG/ML Syringe IV ×2 (02:01→07:52)
[2021-08-25] MEDS: 0.9% Saline Lock 10 ML Syringe IV ×2 (02:02→07:54)
[2021-08-25 04:41] VITALS: BP 110/57; PULSE 61; RESP 18; TEMP 36.3; O2SAT 100
[2021-08-25 05:11] LABS: Hematocrit 32.2 % (37-47); Hemoglobin 10.9 g/dL (12.0-15.0); Mean Corp Hgb Conc 33.9 g/dL (32-36); Mean Corpuscular Hgb 31.1 pg (27.0-32.0); Mean Platelet Vol. 11.4 fl (6.2-12.0); Platelet Count 179 K/mm3 (150-450); RBC Distribution Width CV 13.6 % (11.6-14.6); RBC Distribution Width SD 45.1 fl (35.1-43.9); White Blood Count 16.9 K/mm3 (4.4-11.0)
[2021-08-25 08:00] VITALS: BP 119/68; PULSE 70; RESP 18; TEMP 36.2; O2SAT 97
--- NOTE | 2021-08-25 08:14 | PCM.PN.OB ---
Subjective Subjective Patient doing well without complaints. Tolerating PO. Ambulating and voiding without difficulty. feeding well. Denies chest pain, shortness of breath, calf pain/swelling, fevers, chills, lightheadedness. Objective Data Objective Data Vital Signs: Vital Signs Temp Pulse Resp BP Pulse Ox O2 Del Method 97.1 F L 70 18 119/68 97 Room Air 08/25/21 08:00 08/25/21 08:00 08/25/21 08:00 08/25/21 08:00 08/25/21 08:00 08/25/21 08:00 Oxygen Delivery Method Room Air Weight: 266 lb Body Mass Index (BMI) 41.6 Intake & Output: Intake and Output for Last 24 Hours 08/23/21 08/24/21 08/25/21 23:59 23:59 23:59 Intake Total 1289.01 / 1289.01 6668.21 / 6668.21 Output Total 400 / 400 735 / 735 1100 / 1100 Balance 889.01 / 889.01 5933.21 / 5933.21 -1100 / -1100 Lab / Micro Data Result Diagrams: 08/25/21 05:00 Labs: Laboratory Results - last 24 hr 08/25/21 05:00: WBC 16.9 H, RBC 3.50 L, Hgb 10.9 L, Hct 32.2 L, MCV 92.0, MCH 31.1, MCHC 33.9, RDW Std Deviation 45.1 H, RDW Coeff of Livia 13.6, Plt Count 179, MPV 11.4 Micro: Microbiology 08/22/21 19:30 Nasal Secretion SARS-CoV-2 Antigen (Rapid) - Final ROS Constitutional Constitutional: Reports systems reviewed and no addt'l complaints, except as documented Cardiovascular Cardiovascular: Reports systems reviewed and no addt'l complaints, except as documented Respiratory/Chest Respiratory/Chest: Reports systems reviewed and no addt'l complaints, except as documented Gastrointestinal Gastrointestinal: Reports systems reviewed and no addt'l complaints, except as documented Physical Exam Const alert, oriented x3 and no apparent distress HEENT Head and Scalp: atraumatic Resp normal respiratory effort GI soft to palpation and non-tender Inspection: incision intact, healing well and drainage (none) Bimanual Exam - Vag & Uterus: uterus non-tender Uterus Palpation: uterus fundus firm (below Umbilicus) Assessment & Plan (1) delivery delivered: COMMENT: LTCS AOD 7 cm SM 41 boy [place] PLAN: Plan s/p LTCS PPD # 1 1. routine post care 2. breast feeding- support given 3. rh positive 4. rubella immune
--- NOTE | 2021-08-25 08:15 | DCINST_ITS ---
Discharge Instructions Diet Discharge Diet: No restrictions Activity Discharge Activity: Return to Normal Activity, May Drive (when pain free and off narcotic pain meds), May Shower and May Take a Tub Bath (in 4 weeks) May resume sexual activity in: 6 weeks Weight Bearing Status: Full weight bearing Lifting Restrictions: under 30 lbs for 6 weeks Dressing / Incision Call your doctor if your incision/area has: Continuous Slow Oozing, Sudden Increased Bleeding, Increased Pain/ Swelling, Increased Redness, Foul Smelling Discharge and - Call your doctor if you observe: Fever of 101 or Higher, Using more than 1 pad per hour, Shortness of breath, Chest pain and Uncontrolled pain Suture Line Care: Avoid Pulling/Pushing and Avoid Pinching/Bending Change Dressing in: 1 week (leave open to air after removed) Remove Dressing in: 1 week (if present) Cleanse incision/area with: Soap & Water and Keep Dressing Clean & Dry Follow Up Care Please Follow Up With: Gwendolyn Guzman MD When: Call to make an appointment with your doctor for a postop visit in 2 and 6 weeks. Test Results: Test results from this visit will be discussed in further detail at your follow- up appointment, if applicable. Discharge Plan Admission Admit Date/Time: 08/22/21 19:19 Attending Provider: Gwendolyn Guzman Primary Care Provider: Lissa Clayton Discharge Orders/Prescriptions Prescriptions: New oxycodone-acetaminophen [Percocet] 5-325 mg tablet 1 tab PO Q6H PRN (Reason: pain) 7 Days Qty: 20 0RF naproxen [naproxen] 500 mg tablet 500 mg PO BID PRN PRN (Reason: Pain) Qty: 30 1RF Continued prenat.vits,tammie,[id number]-dqdeg Tablet 1 tab PO DAILY elderberry fruit and flower 460-115 mg capsule PO 1XD famotidine [Pepcid AC] 10 mg tablet 10 mg PO DAILY aspirin 81 mg Capsule 81 mg PO DAILY Referrals / Follow Up: Lissa Clayton MD [Primary Care Provider] - Disposition Disposition (needs filled in before D/C Order can be placed): Home, Self Care
[2021-08-25] MEDS: Senna/Docusate Sodium 1 Tablet PO (11:49)
[2021-08-25 12:00] VITALS: BP 116/72; PULSE 77; RESP 16; TEMP 36.3; O2SAT 97
[2021-08-25] MEDS: Famotidine 20 MG Tablet PO ×2 (14:37→22:09)
[2021-08-25] MEDS: Naproxen 500 MG Tablet PO ×2 (14:37→22:09)
[2021-08-25 20:30] VITALS: BP 130/70; PULSE 81; RESP 16; TEMP 36.9
[2021-08-26] MEDS: Acetaminophen 500 MG Tablet 1000 MG PO ×3 (01:25→13:39)
[2021-08-26 02:30] VITALS: BP 144/75; PULSE 87; RESP 16; TEMP 36.7
[2021-08-26] MEDS: oxyCODONE 5 MG Tablet PO ×3 (03:15→13:39)
[2021-08-26] MEDS: Naproxen 500 MG Tablet PO (06:06)
--- NOTE | 2021-08-26 07:56 | PCM.PN.OB ---
Subjective Subjective Patient doing well without complaints. Tolerating PO. Ambulating and voiding without difficulty. feeding well. Denies chest pain, shortness of breath, calf pain/swelling, fevers, chills, lightheadedness. Objective Data Objective Data Vital Signs: Vital Signs Temp Pulse Resp BP Pulse Ox O2 Del Method 98.1 F 87 16 144/75 H 97 Room Air 08/26/21 02:30 08/26/21 02:30 08/26/21 02:30 08/26/21 02:30 08/25/21 12:00 08/26/21 02:30 Oxygen Delivery Method Room Air Weight: 266 lb Body Mass Index (BMI) 41.6 Intake & Output: Intake and Output for Last 24 Hours 08/24/21 08/25/21 08/26/21 23:59 23:59 23:59 Intake Total 6668.21 / 6668.21 Output Total 735 / 735 1100 / 1100 Balance 5933.21 / 5933.21 -1100 / -1100 Lab / Micro Data Result Diagrams: 08/25/21 05:00 Micro: Microbiology 08/22/21 19:30 Nasal Secretion SARS-CoV-2 Antigen (Rapid) - Final ROS Constitutional Constitutional: Reports systems reviewed and no addt'l complaints, except as documented Cardiovascular Cardiovascular: Reports systems reviewed and no addt'l complaints, except as documented Respiratory/Chest Respiratory/Chest: Reports systems reviewed and no addt'l complaints, except as documented Gastrointestinal Gastrointestinal: Reports systems reviewed and no addt'l complaints, except as documented Physical Exam Const alert, oriented x3 and no apparent distress HEENT Head and Scalp: atraumatic Resp normal respiratory effort GI soft to palpation and non-tender Inspection: incision intact, healing well and drainage (none) Bimanual Exam - Vag & Uterus: uterus non-tender Uterus Palpation: uterus fundus firm (below Umbilicus) Assessment & Plan (1) delivery delivered: COMMENT: LTCS AOD 7 cm SM 41 boy James PLAN: Plan s/p LTCS PPD # 2 1. routine post care 2. breast feeding- support given 3. rh positive 4. rubella immune
--- NOTE | 2021-08-26 07:57 | PCM.DC.SUM ---
Providers Date of Admission: 08/22/21 Primary Care Physician: Dr. Lissa Clayton MD Reason For Visit: PRIMARY Diagnosis Discharge Diagnosis (1) delivery delivered: Status: Acute Code(s): O82 - Encounter for delivery without indication Plan s/p LTCS PPD # 2 1. routine post care 2. breast feeding- support given 3. rh positive 4. rubella immune Medications at Discharge Home Medications elderberry fruit 460 mg-elderberry flower 115 mg capsule cap PO 1XD Check with primary doctor 04/09/21 famotidine 10 mg tablet (Pepcid AC) 10 mg PO DAILY 04/09/21 prenat.vits,tammie,uhg-wseu-palqi 1 tab PO DAILY 04/09/21 aspirin 81 mg capsule 81 mg PO DAILY Check with primary doctor 08/22/21 naproxen 500 mg tablet 500 mg PO BID PRN PRN Pain #30 tabs 08/25/21 oxycodone-acetaminophen 5 mg-325 mg tablet (Percocet) 1 tab PO Q6H PRN pain 7 days #20 tabs 08/25/21 Hospital Course Summary of Care Provided Hospital Course: patient presented for IOL and after inudction had AOD at 7 cm proceeded with LTCS. Postoperatively patient had return of bowel and bladder function and was ambulating well, tolerating adequate p.o., and was stable for discharge to home on postop day #2. Discharge medications naproxen and Percocet. Follow-up in office in 2 weeks for incision check in 6 weeks for visit. Routine post section diet and activity instructions. Weight / BMI Weight Weight: 266 lb Body Mass Index (BMI) 41.6 ABG / Lab / Microbiology Data Result Diagrams: 08/25/21 05:00 Microbiology: Microbiology 08/22/21 19:30 Nasal Secretion SARS-CoV-2 Antigen (Rapid) - Final D/C Instructions Discharge Diet: No restrictions Discharge Activity: May Not Drive (for 2 weeks or while taking narcotic pain medications.), May Shower and May Take a Tub Bath (in 7 days) May shower in (days): 0 May resume sexual activity in: 6 weeks Weight Bearing Status: Full weight bearing Call your doctor if your incision/area has: Continuous Slow Oozing, Sudden Increased Bleeding, Increased Pain/ Swelling, Increased Redness, Foul Smelling Discharge and - Call your doctor if you observe: Fever of 101 or Higher, Using more than 1 pad per hour, Shortness of breath, Chest pain and Uncontrolled pain Suture Line Care: Avoid Pulling/Pushing and Avoid Pinching/Bending Cleanse incision/area with: Soap & Water and Keep Dressing Clean & Dry Please Follow Up With: Gwendolyn Guzman MD When: Call to make an appointment with your doctor for a postop visit in 2 and 6 weeks. Meaningful Use Info Meaningful Use Diagnoses (Choose all that apply): None applicable Discharge Plan Admission Admit Date/Time: 08/22/21 19:19 Attending Provider: Gwendolyn Guzman Primary Care Provider: Lissa Clayton Discharge Orders/Prescriptions Prescriptions: New oxycodone-acetaminophen [Percocet] 5-325 mg tablet 1 tab PO Q6H PRN (Reason: pain) 7 Days Qty: 20 0RF naproxen [naproxen] 500 mg tablet 500 mg PO BID PRN PRN (Reason: Pain) Qty: 30 1RF Continued prenat.vits,tammie,uhi-dqau-zxmxo Tablet 1 tab PO DAILY elderberry fruit and flower 460-115 mg capsule PO 1XD famotidine [Pepcid AC] 10 mg tablet 10 mg PO DAILY aspirin 81 mg Capsule 81 mg PO DAILY Referrals / Follow Up: Lissa Clayton MD [Primary Care Provider] - Disposition Disposition (needs filled in before D/C Order can be placed): Home, Self Care
[2021-08-26 09:15] VITALS: BP 114/71; PULSE 73; RESP 18; TEMP 36.4; O2SAT 99
[2021-08-26] MEDS: Famotidine 20 MG Tablet PO (09:21)
[2021-08-26] MEDS: Enoxaparin 40 MG/0.4 ML Syringe SC (09:22)
[2021-08-26] MEDS: Senna/Docusate Sodium 1 Tablet PO (09:22)
[2021-08-26 13:42] VITALS: BP 129/75; PULSE 69; RESP 20; TEMP 36.2
--- NOTE | 2021-08-31 13:44 | NURSING ---
No answer on follow up phone call. Left voicemail
== END 2021-08-26 13:54 | disposition home or self-care (01) | DRG 788 ==
PROVIDERS: Obstetrics & Gynecology; Admitting Provider Obstetrics & Gynecology; PCP Internal Medicine; Visit Provider Obstetrics & Gynecology
DX: O62.0 Primary inadequate contractions (principal); E66.9 Obesity, unspecified; O76 Abnormality in fetal heart rate and rhythm complicating labor and delivery; O48.0 Post-term pregnancy; Z86.16 Personal history of COVID-19; Z80.0 Family history of malignant neoplasm of digestive organs; Z37.0 Single live birth; O77.0 Labor and delivery complicated by meconium in amniotic fluid; Z86.59 Personal history of other mental and behavioral disorders; O99.214 Obesity complicating childbirth; Z3A.40 40 weeks gestation of pregnancy
CPT/HCPCS: 59025; 59050; 85025; 85027; 86850; 86900; 86901; 87426; 99218; J7120; A4216; G0378; J2405